=== PATIENT | female | born 1955 | race Caucasian/White ===

== ENCOUNTER 2017-03-10 08:43 | Emergency (ER) | payer OTHER ==
--- NOTE | ~2017-03-10 | CT4 ---
[facility] A Service of [facility] [place] RADIOLOGY TEXT RESULTS PATIENT: SAMSON CODY LOCATION: SED : 55 UNIT #: [id number] AGE: [address]: Kenton Barreto MD SEX: F ORDER DR: [id number] [address] [address] [id number] E MR#: [id number] Acc #: [id number] NAME: SAMSON CODY : 1955 SEX: F STUDY DATE/TIME: 03/10/2017 9:35 UNIT: SED ROOM: STUDY DESCRIPTION: CT Abd and Pelv Wo Cont Attending Physician: Kenton Barreto M.D. Ordering Physician: Kenton Barreto M.D. Primary Care Physician: Roberto Gatica M.D. MEDICAL IMAGING REPORT This report is preliminary unless electronic signature is present. EXAM CT abdomen and pelvis without contrast. INDICATIONS Left flank pain for a week. Diagnosed with cystitis on Sunday. COMPARISON No comparison. TECHNIQUE Axial 3 mm images were obtained through the abdomen and pelvis without IV or oral contrast. This CT exam was performed with one or more of the following radiation dose reduction techniques: automatic exposure control, adjustment of mA and/or kV according to patient size, and iterative reconstruction. FINDINGS The lung bases are clear. The liver shows diffuse fatty change, and is, otherwise, normal. The gallbladder has been removed. The spleen, pancreas, adrenal glands and kidneys are normal in appearance. The aorta is normal in size. The bowel is normal. The uterus has been removed. There are no adnexal masses. The bladder is normal. There are marked degenerative change in the lumbar spine and L4-5 and 5-1. IMPRESSION 1. Prior cholecystectomy and hysterectomy. 2. Diffuse fatty change throughout the liver. 3. No acute findings. 4. Degenerative change of the lumbar spine. [facility] A Service of [facility] [place] RADIOLOGY TEXT RESULTS PATIENT: SAMSON CODY LOCATION: SED : 55 UNIT #: [id number] AGE: [address]: Kenton Barreto MD SEX: F ORDER DR: Dictated by... Fernando Laguna M.D. THIS IS AN ELECTRONICALLY VERIFIED REPORT Fernando Laguna M.D. at 03/11/2017 7:02 AM CHUYITA/marcial TD: 03/10/2017 16:40 JOB #: [id number] MEDICAL IMAGING REPORT Page 1 of 1
[~2017-03-10 08:43] MED LIST: CYMBALTA PO; IBUPROFEN PO; NICOTINE T1 PATCH .2 TOP; ZANTAC PO
[2017-03-10] MEDS ORDERED: IBUPROFEN PO (08:53)
[2017-03-10] MEDS ORDERED: PREVACID PO (08:54)
[2017-03-10] MEDS ORDERED: ASPIRIN81 M2 PO (08:54)
[2017-03-10 09:36] LABS: BASOPHIL# 0.1 X10e3 (0-0.3); BASOPHIL% 0.9 % (0-2.5); EOSINOPHIL# 0.5 X10e3 (0-0.7); HEMATOCRIT 42.5 % (35.0-45.0); HEMOGLOBIN 14.1 gm/dL (12.0-16.0); LYMPHOCYTE# 2.4 X10e3 (1.0-3.5); MEAN CELL VOLUME 86.5 FL (83-96); MEAN CORPUSCULAR HEMOGLOBIN 28.7 PG (28-34); MEAN CORPUSCULAR HGB CONC 33.2 g/dL (30-36); MEAN PLATELET VOLUME 8.9 FL (6.5-11.5); MONOCYTE# 0.7 X10e3 (0-1.0); MONOCYTE% 7.5 % (3.0-12.0); NEUTROPHIL# 5.5 X10e3 (1.5-7.1); NEUTROPHIL% 60.6 % (40-75); PLATELET COUNT 235 X10e3 (140-420); RED BLOOD COUNT 4.92 X10e (3.90-5.30); RED CELL DISTRIBUTION WIDTH 14.2 % (11.0-15.5); WHITE BLOOD COUNT 9.1 X10e3 (4.0-10.5)
[2017-03-10 09:38] LABS: DIFF IND NO
[2017-03-10 09:41] LABS: MICRO INDICATED? YES; URINE APPEARANCE CLEAR; URINE BILIRUBIN NEG (NEG); URINE BLOOD NEG (NEG); URINE COLOR YELLOW; URINE GLUCOSE NEG (NORM); URINE KETONE NEG (NEG); URINE LEUKOCYTE ESTERASE 1+ (NEG); URINE NITRATE POS (NEG); URINE PH 5.5 (5-8); URINE PROTEIN NEG (NEG); URINE SOURCE CLEAN CATCH; URINE SPECIFIC GRAVITY 1.015 (1.003-1.035); URINE UROBILINOGEN 0.2 MG/DL (NORM)
[2017-03-10 09:45] LABS: CULTURE INDICATED? YES; URINE BACTERIA 1+ (NEG); URINE MUCUS PRESENT; URINE SQUAMOUS EPITHELIAL CELL MODERATE /[HPF]; URINE TRANSITIONAL EPI CELLS FEW /[HPF]; URINE WBC 25-50 /[HPF] (0-5)
[2017-03-10 09:55] LABS: ALBUMIN SERUM 3.7 g/dL (3.5-5.0); BILIRUBIN, DIRECT 0.1 mg/dL (0.0-0.2); BILIRUBIN,INDIRECT 0.2 mg/dL (0.0-0.9); BILIRUBIN,TOTAL 0.3 mg/dL (0.2-2.0); CALCIUM SERUM 8.8 mg/dL (8.4-10.2); GLOM FILT RATE Estimated 60.8 mL/min (>60); POTASSIUM 3.9 mmol/L (3.5-5.1); PROTEIN TOTAL SERUM 7.1 g/dL (6.0-8.3)
== END 2017-03-10 10:42 | disposition home or self-care (01) ==
LOC: SED 08:43
PROVIDERS: Emergency Medicine
DX: N39.0 Urinary tract infection, site not specified (principal); Z87.442 Personal history of urinary calculi; Z79.82 Long term (current) use of aspirin; Z79.899 Other long term (current) drug therapy
CPT/HCPCS: 74176; 80048; 80076; 81003; 83690; 85025; 87086; 96374; 96375; 99284; J0696; J1885; J2405